=== PATIENT | female | born 1990 | race Caucasian/White ===

== ENCOUNTER 2016-10-15 09:24 | Emergency (ER) | payer OTHER ==
[2016-10-15 11:04] VITALS: BP 117/94
--- NOTE | 2016-10-15 11:29 | UC ---
Respiratory Complaint HPI - HPI Summary HPI Summary: pt c/o 5 days of chest congestion and cough which causes pain in her throat, is occasionally productive of yellow sputum and consistently interfering with sleep. denies other symptoms. - History of Current Complaint Chief Complaint: UCRespiratory Stated Complaint: COUGH X 4 DAYS Time Seen by Provider: 10/15/16 11:11 Hx Obtained From: Patient Hx Last Menstrual Period: unknown ?: No Onset/Duration: Gradual Onset, Lasting Days - 5, Still Present Timing: Constant Severity Initially: Moderate Severity Currently: Moderate Pain Intensity: 3 Character: Cough: Productive Aggravating Factors: Deep Breaths, Recumbent Position Alleviating Factors: Upright Position Associated Signs And Symptoms: Positive: URI. Negative: Dyspnea, Fever, Chills , Pleuritic Chest Pain, Wheezing, Hemoptysis, Dizziness, Nasal Congestion, Hoarseness, Sinus Discomfort - Allergies/Home Medications Allergies/Adverse Reactions: Allergies Allergy/AdvReac Type Severity Reaction Status Date / Time Penicillins Allergy Intermediate Hives Verified 10/15/16 10:46 Home Medications: Home Medications Levonorgestrel (Iud) [Mirena IUD] 20 mcg IU ONCE 10/15/16 [History Confirmed 09/26] Nasal [place]. DAILY 10/15/16 [History] Topiramate [Topamax 100 mg tab] 100 mg PO BID 10/15/16 [History Confirmed ] PMH/Surg Hx/FS Hx/Imm Hx - Additional Past Medical History Additional PMH: gestational dm GI/ History: Gastroesophageal Reflux Psychological History: Other - mood disorder Other Psychological History: mood disorder - Surgical History Surgical History: Yes Surgery Procedure, Year, and Place: TONSILLECTOMY - Social History Alcohol Use: Occasionally Substance Use Type: None Smoking Status (MU): Light Every Day Tobacco Smoker Type: Cigarettes Amount Used/How Often: 1/2ppd Length of Time of Smoking/Using Tobacco: 3 yrs Have You Smoked in the Last Year: Yes Review of Systems Constitutional: Negative Eyes: Negative ENT: Sore Throat - only wwith cough Respiratory: Cough Cardiovascular: Negative Gastrointestinal: Negative Neurological: Negative All Other Systems Reviewed And Are Negative: Yes Physical Exam Triage Information Reviewed: Yes Appearance: Well-Appearing, No Pain Distress, Well-Nourished Vital Signs: Initial Vital Signs Temp 98.3 F 10/15/16 10:48 Pulse 81 10/15/16 10:48 Resp 16 10/15/16 10:48 BP 117/94 10/15/16 10:48 Pulse Ox 99 10/15/16 10:48 Eyes: Positive: Conjunctiva Clear. Negative: Discharge ENT: Positive: Hearing grossly normal, Pharynx normal, TMs normal. Negative: Nasal congestion, Nasal drainage, Tonsillar swelling, Muffled/hoarse voice Neck: Positive: Supple, Nontender, No Lymphadenopathy Respiratory: Positive: Lungs clear, No respiratory distress, No accessory muscle use, Expiration - prolonged at bases Cardiovascular: Positive: RRR, No Murmur Musculoskeletal Exam: Normal Neurological: Positive: Alert, Muscle Tone Normal Psychological: Positive: Age Appropriate Behavior Skin Exam: Normal UC Diagnostic Evaluation - Laboratory O2 Sat by Pulse Oximetry: 99 Respiratory Course/Dx - Differential Dx/Diagnosis Differential Diagnosis/HQI/PQRI: Bronchitis, Lower Resp Infection, Sinusitis Provider Diagnoses: uri, bronchospasm Discharge - Discharge Plan Condition: Stable Disposition: HOME Patient Education Materials: Upper Respiratory Infection (ED), Bronchospasm (ED ) Referrals: MOLLY Doshi [Primary Care Provider] - (FOLLOW UP IN 5-7 DAYS IF NOT IMPROVING) Additional Instructions: INHALED BRONCHODILATORS: You have received a prescription for an inhaled bronchodilator -- a medication which stimulates the airways in the lung to dilate. This improves the flow of air in asthma, bronchitis, and emphysema. These medicines have some similarity to adrenaline, and can cause similar side effects: shakiness, racing heart, and a sense of nervousness. These side effects decrease with time. Contact your doctor if these side effects are severe. Do not over-use the medicine. Too-frequent use of the inhaler may make it ineffective. Call your doctor if the inhaler is not controlling your symptoms at the prescribed doses. COUGH-SUPPRESSANT & EXPECTORANT MEDICATION: You are to use a cough medication as needed for relief of symptoms. This medicine is a combination of an expectorant (to make the mucous thinner and more easily "coughed up") and a cough suppressant (to reduce the frequency of coughing). The cough-suppressant medicine is related to narcotics. You may experience mild nausea and sleepiness. Some patients who are very sensitive to narcotics may have stomach pain from this medicine. Taking the medicine with food reduces these side effects. Do not drive or work with machinery until you know how this medicine affects you. The expectorant should have no side effects. Iodine-containing expectorants (such as organidin) should not be taken by persons with active thyroid disease unless approved by your doctor. Call the doctor if you develop shortness of breath, hives, rash, itching, lightheadedness, or severe nausea and vomiting. EXPECTORANT MEDICATION: WE SENT IN A SCRIPT FOR MUCINEX SO THAT IT IS EASIER FOR YOU TO PICK THE RIGHT MED AT THE PHARMACY. HOWEVER, YOU CAN ALSO GO TO THE [facility] STORE AND BUY PLAIN GUAIFENESIN WITHOU BINDERS OR FILLERS. An expectorant medicine has been prescribed. This type of drug makes mucous thinner, helping the sinuses, nose, and bronchial tubes to remain free of pus and mucous. Expectorants make a cough less severe and more comfortable, and help infected sinuses drain. In general, antihistamines defeat the purpose of the expectorant by making mucous thicker. They should be avoided unless specifically recommended by your physician. TESSALON PERLES: You have received a prescription for Tessalon Perles (benzonatate). This is a non-narcotic medicine for relief of cough. It usually works in about 15- 20 minutes and lasts around four hours. Tessalon Perles should be swallowed. They should not be chewed or dissolved in the mouth (this can produce temporary numbing of the mouth and choking can occur). If you develop any adverse effects such as wheezing, shortness of breath, hives, rash, itching, or lightheadedness, please return at once.
== END 2016-10-15 11:53 | disposition home or self-care (01) ==
LOC: UCCORT 09:24
DX: J06.9 Acute upper respiratory infection, unspecified (principal); J98.01 Acute bronchospasm; K21.9 Gastro-esophageal reflux disease without esophagitis; F39 Unspecified mood [affective] disorder; Z88.0 Allergy status to penicillin; F17.210 Nicotine dependence, cigarettes, uncomplicated
CPT/HCPCS: 99212; G0463

== ENCOUNTER 2017-02-11 19:15 | Emergency (ER) | payer SELFPAY ==
--- NOTE | 2017-02-11 19:17 | UC ---
Throat Pain/Nasal [place] HPI - HPI Summary HPI Summary: 26 YEAR OLD FEMALE PRESENTS WITH COMPLAINS OF SINUS CONGESTION AND EAR PAIN. - History of Current Complaint Stated Complaint: SINUS/EAR PAIN Time Seen by Provider: 02/11/17 19:17 Hx Obtained From: Patient Hx Last Menstrual Period: 6 years Onset/Duration: Sudden Onset Severity: Moderate - Allergies/Home Medications Allergies/Adverse Reactions: Allergies Allergy/AdvReac Type Severity Reaction Status Date / Time Penicillins Allergy Intermediate Hives Verified 02/11/17 19:27 PMH/Surg Hx/FS Hx/Imm Hx Previously Healthy: Yes - Surgical History Surgical History: Yes Surgery Procedure, Year, and Place: TONSILLECTOMY - Social History Alcohol Use: Occasionally Substance Use Type: None Smoking Status (MU): Light Every Day Tobacco Smoker Type: Cigarettes Amount Used/How Often: 1/2ppd Length of Time of Smoking/Using Tobacco: 3 yrs Have You Smoked in the Last Year: Yes Review of Systems Constitutional: Negative Skin: Negative Eyes: Negative ENT: Sore Throat, Nasal Discharge, Sinus Congestion, Sinus Pain/Tenderness Respiratory: Cough Cardiovascular: Negative Gastrointestinal: Negative Genitourinary: Negative Motor: Negative Neurovascular: Negative Musculoskeletal: Negative Neurological: Negative Psychological: Negative All Other Systems Reviewed And Are Negative: Yes Physical Exam Triage Information Reviewed: Yes Vital Signs Reviewed: Yes Eye Exam: Normal ENT: Positive: Pharyngeal erythema, Nasal congestion, Nasal drainage Dental Exam: Normal Neck exam: Normal Neck: Positive: 1 Respiratory Exam: Normal Cardiovascular Exam: Normal Abdominal Exam: Normal Musculoskeletal Exam: Normal Neurological Exam: Normal Psychological Exam: Normal Skin Exam: Normal Throat Pain/Nasal Course/Dx - Differential Dx/Diagnosis Provider Diagnoses: sinusitis. pharyngitis Discharge - Discharge Plan Condition: Stable Disposition: HOME Prescriptions: Azithromyxin KENRICK (NF) [Z-Kenrick (Zithromax) 250 mg tabs #6] 2 tab PO .TODAY, THEN 1 DAILY #6 tab Fluticasone NASAL SPRAY 50MCG* [Flonase NASAL SPRAY 50MCG*] 2 spray BOTH NARES DAILY #1 btl Patient Education Materials: Sinusitis (ED) Referrals: MOLLY Doshi [Primary Care Provider] -
[2017-02-11 19:27] VITALS: BP 136/88
== END 2017-02-11 19:38 | disposition home or self-care (01) ==
LOC: UCCORT 19:15
DX: J02.9 Acute pharyngitis, unspecified (principal); J32.9 Chronic sinusitis, unspecified; F17.210 Nicotine dependence, cigarettes, uncomplicated; Z88.0 Allergy status to penicillin
CPT/HCPCS: 99212; G0463

== ENCOUNTER 2017-05-15 12:07 | Emergency (ER) | payer BC, OTHER | END 2017-05-15 13:02 | disposition left against medical advice (07) | LOC: UCCORT 12:07 | DX: L98.9 Disorder of the skin and subcutaneous tissue, unspecified (principal); Z53.21 Procedure and treatment not carried out due to patient leaving prior to being seen by health care provider ==

== ENCOUNTER 2017-05-22 09:02 | Emergency (ER) | payer BC ==
[2017-05-22 09:17] VITALS: BP 120/76
--- NOTE | 2017-05-22 09:42 | UC ---
Lower Extremity/Ankle HPI - HPI Summary HPI Summary: Right foot caster skin and localized small amount of swelling. She has hx of athletes foot and has been using cream for that for two weeks without much help. At times it is ichy and then it is tender as well. No proximal spreading. - History of Current Complaint Chief Complaint: UCLowerExtremity Stated Complaint: RIGHT FOOT COMPLAINT Time Seen by Provider: 05/22/17 09:23 Hx Obtained From: Patient Hx Last Menstrual Period: n/a Onset/Duration: Gradual Onset, Lasting Weeks, Still Present Severity Initially: Mild Severity Currently: Moderate Aggravating Factor(s): Standing Alleviating Factor(s): Rest Able to Bear Weight: Yes - Allergies/Home Medications Allergies/Adverse Reactions: Allergies Allergy/AdvReac Type Severity Reaction Status Date / Time Penicillins Allergy Intermediate Hives Verified 05/22/17 09:17 Home Medications: Home Medications Clotrimazole/Betamethasone* [Lotrisone Cream*] 1 applic TOPICAL BID 05/22/17 [ History Confirmed 05/22/17] PMH/Surg Hx/FS Hx/Imm Hx Previously Healthy: No - athletes foot. - Surgical History Surgical History: Yes Surgery Procedure, Year, and Place: TONSILLECTOMY - Family History Known Family History: Positive: Other - no related foot disease in the family. - Social History Occupation: Employed Full-time Alcohol Use: Rare Substance Use Type: None Smoking Status (MU): Light Every Day Tobacco Smoker Type: Cigarettes Amount Used/How Often: 1/2ppd Length of Time of Smoking/Using Tobacco: 3 yrs Have You Smoked in the Last Year: Yes Review of Systems Skin: Rash All Other Systems Reviewed And Are Negative: Yes Physical Exam Triage Information Reviewed: Yes Appearance: Well-Appearing, No Pain Distress, Well-Nourished Vital Signs: Initial Vital Signs Temp 97.9 F 05/22/17 09:11 Pulse 85 05/22/17 09:11 Resp 18 05/22/17 09:11 BP 120/76 05/22/17 09:11 Vital Signs Reviewed: Yes Eye Exam: Normal Eyes: Positive: Conjunctiva Clear ENT: Positive: Normal ENT inspection. Negative: Nasal congestion Neck: Negative: Nuchal Rigidity Respiratory: Positive: Lungs clear, Normal breath sounds, No respiratory distress, No accessory muscle use. Negative: Respiratory distress, Decreased breath sounds, Accessory muscle use, Crackles, Rhonchi, Stridor, Wheezing Cardiovascular: Positive: No Murmur, Pulses Normal, Brisk Capillary Refill Abdomen Description: Positive: No Organomegaly, Soft. Negative: Distended, Guarding Musculoskeletal Exam: Other - she walks into the room comfortably. NO ankle or foot swelling or redness. Musculoskeletal: Positive: ROM Intact Neurological: Positive: Alert, Muscle Tone Normal. Negative: Fatigued Psychological: Positive: Age Appropriate Behavior Skin Exam: Other - small dime sized area of skin that is swollen mildly but not indurated. No fluctuance. No streaking. There is no dry cracked skin. Lower Extremity Course/Dx - Course Course Of Treatment: Very small area of skin irritation without obvious signs of bacterial or fungal infection. We will try steroid ointment and then f;u with podiatry if not improved in a few days. - Differential Dx/Diagnosis Provider Diagnoses: rash of the right foot. Discharge - Discharge Plan Condition: Good Disposition: HOME Prescriptions: Triamcinolone 0.5% OINT * 1 applic TOPICAL BID #15 tube Patient Education Materials: Acute Rash (ED) Referrals: Dayami Bloom MD [Primary Care Provider] - Walt Sylvester DPM [Doctor of Podiatric Medicine] -
== END 2017-05-22 09:48 | disposition home or self-care (01) ==
LOC: UCCORT 09:02
DX: R21 Rash and other nonspecific skin eruption (principal); Z88.0 Allergy status to penicillin; F17.210 Nicotine dependence, cigarettes, uncomplicated
CPT/HCPCS: 99212; G0463

== ENCOUNTER 2017-07-02 09:51 | Emergency (ER) | payer SELFPAY ==
[2017-07-02 10:33] VITALS: BP 137/87
--- NOTE | 2017-07-02 10:44 | UC ---
Upper Extremity HPI - HPI Summary HPI Summary: pt is c/o pain to " the inside of my left shoulder blade". it began about 2 weeks ago. pt states she sits at the computer and certain positions make it worse. no injury, cp, sob and not exertion related. - History of Current Complaint Chief Complaint: UCUpperExtremity Stated Complaint: LFT SHOULDER PAIN Time Seen by Provider: 07/02/17 10:31 Hx Obtained From: Patient Hx Last Menstrual Period: iud ?: No Onset/Duration: Sudden Onset, Still Present Pain Intensity: 5 Character: Sharp Aggravating Factor(s): Movement Alleviating Factor(s): Nothing Associated Signs And Symptoms: Negative: Swelling, Redness, Numbness/Tingling - Risk Factors Non-Orthopedic Risk Factor: Negative - Allergies/Home Medications Allergies/Adverse Reactions: Allergies Allergy/AdvReac Type Severity Reaction Status Date / Time MS Penicillins [Penicillins] Allergy Intermediate Hives Verified 05/22/17 09:17 PMH/Surg Hx/FS Hx/Imm Hx Neurological History: Migraine - Surgical History Surgical History: Yes Surgery Procedure, Year, and Place: TONSILLECTOMY - Family History Known Family History: Positive: Other - no related foot disease in the family. - Social History Occupation: Employed Full-time Alcohol Use: Occasionally Substance Use Type: None Smoking Status (MU): Light Every Day Tobacco Smoker Type: Cigarettes Amount Used/How Often: 1/2ppd Length of Time of Smoking/Using Tobacco: 3 yrs Have You Smoked in the Last Year: Yes Review of Systems Constitutional: Negative Skin: Negative Eyes: Negative ENT: Negative Respiratory: Negative Cardiovascular: Negative Gastrointestinal: Negative Genitourinary: Negative Motor: Negative Neurovascular: Negative Musculoskeletal: Other: - pain L shoulder blade mm Neurological: Negative Psychological: Negative Is Patient Immunocompromised?: No All Other Systems Reviewed And Are Negative: Yes Physical Exam Triage Information Reviewed: Yes Appearance: Well-Appearing Vital Signs: Initial Vital Signs Temp 98.4 F 07/02/17 10:24 Pulse 91 07/02/17 10:24 Resp 18 07/02/17 10:24 BP 137/87 07/02/17 10:24 Pulse Ox 100 07/02/17 10:24 Vital Signs Reviewed: Yes Eyes: Positive: Conjunctiva Clear ENT: Positive: Normal ENT inspection Neck: Positive: Supple, Nontender, No Lymphadenopathy Respiratory: Positive: Chest non-tender, Lungs clear, Normal breath sounds Cardiovascular: Positive: RRR, No Murmur, Pulses Normal Abdomen Description: Positive: Nontender, No Organomegaly, Soft Bowel Sounds: Positive: Present Musculoskeletal: Positive: Other: - spine is without deformity or tenderness. L medial scapular border mm spasm and tenderness, palpation exacerbates pt discomfort as does LUE / trunk ROM. BUE are without gross deformity, swelling or discoloration and have full s/v/m function. Neurological: Positive: Alert Psychological: Positive: Age Appropriate Behavior Skin Exam: Normal Upper Extremity Course/Dx - Course Course Of Treatment: nothing to suggest cardiac or pulmonary issue. exam c/w mm spasm. will tx nsaid and mm relaxor. pt has f/u this saturday with her pcp already. - Differential Dx/Diagnosis Provider Diagnoses: L medial scapular mm spasm Discharge - Discharge Plan Condition: Stable Disposition: HOME Prescriptions: Cyclobenzaprine TAB* [Flexeril 10 MG TAB*] 10 mg PO TID 4 Days #10 tab Naproxen [Naprosyn] 500 mg PO BID 7 Days #14 tablet Patient Education Materials: Muscle Strain (DC) Referrals: Dayami Bloom MD [Primary Care Provider] - 3 Days
== END 2017-07-02 11:22 | disposition home or self-care (01) ==
LOC: UCCORT 09:51
DX: M62.838 Other muscle spasm (principal); F17.210 Nicotine dependence, cigarettes, uncomplicated
CPT/HCPCS: 99212; G0463

== ENCOUNTER 2017-08-21 11:46 | Emergency (ER) | payer BC ==
[2017-08-21 12:00] VITALS: BP 143/89
--- NOTE | 2017-08-21 12:25 | UC ---
UC General HPI - HPI Summary HPI Summary: while at work, pt felt dizzy/not well. not sure if just a sense of weakness/ lightheaded or shift/spin. no PADILLA, fever, n/v/d. denies risk/concern for . ate a granola bar. is feeling improved now. hx gestational DM but that had resolved. - History of Current Complaint Chief Complaint: UCEar Stated Complaint: DIZZY Time Seen by Provider: 08/21/17 11:59 Hx Obtained From: Patient Hx Last Menstrual Period: mirana Onset/Duration: Sudden Onset Pain Intensity: 3 Associated Signs & Symptoms: Positive: Dizziness. Negative: Cough, Chest Pain, Fever, Palpitations, SOB, Weakness - Allergy/Home Medications Allergies/Adverse Reactions: Allergies Allergy/AdvReac Type Severity Reaction Status Date / Time Penicillins Allergy Intermediate Hives Verified 08/21/17 12:00 PMH/Surg Hx/FS Hx/Imm Hx - Additional Past Medical History Additional PMH: Gestational DM Neurological History: Migraine - Surgical History Surgical History: Yes Surgery Procedure, Year, and Place: TONSILLECTOMY - Family History Known Family History: Positive: Other - no related foot disease in the family. - Social History Occupation: Employed Full-time Lives: With Family Alcohol Use: Occasionally Substance Use Type: None Smoking Status (MU): Light Every Day Tobacco Smoker Type: Cigarettes Amount Used/How Often: 1/2ppd Length of Time of Smoking/Using Tobacco: 3 yrs Have You Smoked in the Last Year: Yes - Immunization History Vaccination Up to Date: Yes Review of Systems Constitutional: Other - "dizzy" Skin: Negative Eyes: Negative ENT: Negative Respiratory: Negative Cardiovascular: Negative Gastrointestinal: Negative Genitourinary: Negative Motor: Negative Neurovascular: Negative Musculoskeletal: Negative Neurological: Negative Psychological: Negative Is Patient Immunocompromised?: No All Other Systems Reviewed And Are Negative: Yes Physical Exam Triage Information Reviewed: Yes Appearance: Well-Appearing Vital Signs: Initial Vital Signs Temp 98.7 F 08/21/17 11:54 Pulse 73 08/21/17 11:54 Resp 18 08/21/17 11:54 BP 143/89 08/21/17 11:54 Pulse Ox 100 08/21/17 11:54 Vital Signs Reviewed: Yes Eyes: Positive: Conjunctiva Clear ENT: Positive: Pharynx normal, TMs normal. Negative: Nasal congestion, Nasal drainage Neck: Positive: Supple, Nontender, No Lymphadenopathy Respiratory: Positive: Lungs clear, Normal breath sounds Cardiovascular: Positive: RRR, No Murmur Abdomen Description: Positive: Nontender, No Organomegaly, Soft Bowel Sounds: Positive: Present Musculoskeletal: Positive: ROM Intact Neurological: Positive: Alert, Other: - CN 2-12 grossly intact, steagy gait, 5/ 5 strength and 2 + reflexes x4. Psychological: Positive: Age Appropriate Behavior Skin Exam: Normal Diagnostics - Laboratory Diagnostic Studies Completed/Ordered: [id number] Course/Dx - Course Course Of Treatment: exam is reassuring, pt feeling better at time of exam. FS [id number]. will refer back to pcp for f/u - Differential Dx - Multi-Symptom Provider Diagnoses: Transient dizziness Discharge - Sign-Out/Discharge Documenting (check all that apply): Discharge - Discharge Plan Condition: Stable Disposition: HOME Patient Education Materials: Dizziness (ED), Weakness (ED) Referrals: Dayami Bloom MD [Primary Care Provider] - As Soon As Possible - Billing Disposition and Condition Condition: STABLE Disposition: HOME
== END 2017-08-21 12:58 | disposition home or self-care (01) ==
LOC: UCCORT 11:46
DX: R42 Dizziness and giddiness (principal); Z88.0 Allergy status to penicillin; F17.210 Nicotine dependence, cigarettes, uncomplicated
CPT/HCPCS: 99211; G0463

== ENCOUNTER 2017-09-15 11:51 | Emergency (ER) | payer BC | END 2017-09-15 12:59 | disposition left against medical advice (07) | LOC: UCCORT 11:51 | DX: L98.9 Disorder of the skin and subcutaneous tissue, unspecified (principal); Z53.21 Procedure and treatment not carried out due to patient leaving prior to being seen by health care provider ==

== ENCOUNTER 2018-08-23 16:51 | Emergency (ER) | payer OTHER ==
[2018-08-23 17:33] VITALS: BP 134/91
--- NOTE | 2018-08-23 17:43 | UC ---
Throat Pain/[place]al [place] HPI - HPI Summary HPI Summary: C/O ongoing allergies, worse since the onset of . 17 weeks . Today onset of sore throat without coughing. H/O strep throat. - History of Current Complaint Chief Complaint: UCGeneralIllness Stated Complaint: SORE THROAT Hx Last Menstrual Period: 04/29/2018 ?: Yes Onset/Duration: Sudden Onset, Lasting Days - 1, Still Present Severity: Moderate Pain Intensity: 4 Cough: None Associated Signs & Symptoms: Positive: Nasal Discharge. Negative: Sinus Discomfort Related History: Seasonal Allergies - Allergies/Home Medications Allergies/Adverse Reactions: Allergies Allergy/AdvReac Type Severity Reaction Status Date / Time Penicillins Allergy Intermediate Hives Verified 08/23/18 17:33 Home Medications: Home Medications Vitamin TAB* 1 tab PO DAILY 08/23/18 [History Confirmed 08/23/18] diPHENhydraMINE PO* [Benadryl PO 25 MG TAB*] 25 mg PO BID 08/23/18 [History Confirmed 08/23/18] PMH/Surg Hx/FS Hx/Imm Hx Endocrine History: Diabetes - gestational Neurological History: Migraine Psychological History: Anxiety - Surgical History Surgical History: Yes Surgery Procedure, Year, and Place: TONSILLECTOMY - Family History Known Family History: Positive: Hypertension, Diabetes, Other - no related foot disease in the family., Non-Contributory - Social History Occupation: Employed Full-time Lives: With Family Alcohol Use: None Alcohol Amount: since Substance Use Type: None Smoking Status (MU): Light Every Day Tobacco Smoker Type: Cigarettes Amount Used/How Often: 3 cigs Length of Time of Smoking/Using Tobacco: 3 yrs Have You Smoked in the Last Year: Yes - Immunization History Vaccination Up to Date: Yes Review of Systems All Other Systems Reviewed And Are Negative: Yes ENT: Positive: Sore Throat, Ear Ache - 1 1/2 weeks ago, resolved., Nasal Discharge Physical Exam Triage Information Reviewed: Yes Appearance: Well-Appearing, No Pain Distress, Obese Vital Signs: Initial Vital Signs Temp 97.3 F 08/23/18 17:29 Pulse 103 08/23/18 17:29 Resp 17 08/23/18 17:29 BP 134/91 08/23/18 17:29 Pulse Ox 100 08/23/18 17:29 Eyes: Positive: Conjunctiva Clear ENT: Positive: Pharynx normal, Nasal congestion - severe with allergic changes, TMs normal Neck exam: Normal Respiratory Exam: Normal Cardiovascular: Positive: RRR, Murmur:Sys:Grade _?_/ - 2/6 systolic Abdomen Description: Positive: Other: - FHT 150's Musculoskeletal Exam: Normal Neurological Exam: Normal Psychological Exam: Normal Skin Exam: Normal Throat Pain/Nasal Course/Dx - Differential Dx/Diagnosis Differential Diagnosis/HQI/PQRI: Pharyngitis, Tonsillitis, URI Provider Diagnosis: Allergic rhinitis, Pharyngitis Discharge - Sign-Out/Discharge Documenting (check all that apply): Patient Departure All imaging exams completed and their final reports reviewed: No Studies - Discharge Plan Condition: Stable Disposition: HOME Patient Education Materials: Allergic Rhinitis (ED), Pharyngitis (ED) Referrals: Dayami Bloom MD [Primary Care Provider] - Additional Instructions: NEILMED SINUS RINSE: CHECK OUT AT [facility] Saline nasal wash helps with mucous, allergies and congestion. It can be used up to twice a day or only as needed. Use lukewarm tap water. It does not have to be sterilized or distilled water. Do 1/3 on each side and snort out of both nostrils. Repeat the process with 1/6 of the bottle on each side with snorting in between to finish the solution in the bottle - Billing Disposition and Condition Condition: STABLE Disposition: Home
== END 2018-08-23 18:00 | disposition home or self-care (01) ==
LOC: UCCORT 16:51
DX: O99.512 Diseases of the respiratory system complicating pregnancy, second trimester (principal); O24.419 Gestational diabetes mellitus in pregnancy, unspecified control; O99.332 Smoking (tobacco) complicating pregnancy, second trimester; J30.9 Allergic rhinitis, unspecified; J02.9 Acute pharyngitis, unspecified; F17.210 Nicotine dependence, cigarettes, uncomplicated; Z88.0 Allergy status to penicillin; Z3A.17 17 weeks gestation of pregnancy
CPT/HCPCS: 87651; 99211; G0463